=== PATIENT | male | born 1990 | race Caucasian/White ===

== ENCOUNTER 2018-01-02 20:23 | Emergency (ER) | payer SELFPAY ==
[~2018-01-02 20:23] MED LIST: NAPROSYN500 M1 PO
--- NOTE | 2018-01-02 21:21 | ED PSYCHIATRIC COMPLAINT ---
History of Present Illness General Chief Complaint: Psychiatric Related Complaint Stated Complaint: BIBA FOR DEPRESSION, +SI Source: patient, old records, EMS Exam Limitations: no limitations Vital Signs & Intake/Output Vital Signs & Intake/Output Vital Signs Date Time Temp Pulse Resp B/P B/P Pulse O2 O2 Flow FiO2 Mean Ox Delivery Rate 01/03 0659 96.3 55 16 125/72 100 Room Air 01/03 0245 97.8 74 16 116/70 99 Room Air 01/02 2306 98.5 70 20 122/64 99 Room Air 01/02 2038 97.8 85 16 140/76 100 Room Air Allergies Coded Allergies: NO KNOWN ALLERGIES (07/06/12) Triage Note: PT BIBA ON A PEER FOR SI. PER POLICE PT SEND GRANDMOTHER 25 TEXT MESSAGES SAYING HE WANTS TO COMMIT SUICIDE, NO PLAN. PT ARRIVES CALM AND COOPERATIVE Triage Nurses Notes Reviewed? yes HPI: Patient presents for evaluation of suicidal ideation. Patient states that he has been under a lot of stress recently. He has lost his job and feels the need to speak to somebody. He attempted to text his grandmother and his biological father. Apparently expressed some suicidal ideation prompting them to contact the police. (Ashley JACOBS,Julián Castaneda) Reconcile Medications [MEDICAL MARIJUANA] (Reported) (Jeffery JACOBS,Yayo) Past History Travel History Traveled to [place] past 21 day No Medical History Any Pertinent Medical History? see below for history Neurological: NONE EENT: NONE Cardiovascular: NONE Respiratory: NONE Gastrointestinal: NONE Hepatic: NONE Renal: NONE Musculoskeletal: NONE Psychiatric: NONE Endocrine: NONE Blood Disorders: NONE Cancer(s): NONE INSOLE PRESSER/Reproductive: NONE Surgical History Surgical History: non-contributory Psychosocial History What is your primary language Marshallese Family History Hx Contributory? No (Ashley JACOBS,Julián Castaneda) Review of Systems Review of Systems Constitutional: Reports: no symptoms. EENTM: Reports: no symptoms. Respiratory: Reports: no symptoms. Cardiovascular: Reports: no symptoms. GI: Reports: no symptoms. Genitourinary: Reports: no symptoms. Musculoskeletal: Reports: no symptoms. Skin: Reports: no symptoms. Neurological/Psychological: Reports: see HPI. Hematologic/Endocrine: Reports: no symptoms. Immunologic/Allergic: Reports: no symptoms. All Other Systems: Reviewed and Negative (Ashley JACOBS,Julián Castaneda) Physical Exam Physical Exam General Appearance: SEE BELOW Neurological/Psychiatric: SEE BELOW Comments: General: Alert, calm, cooperative Head: Normocephalic, atraumatic Eyes: Normal inspection, no nystagmus, EOMI Ears: Normal inspection Nose: Normal inspection Throat: Moist mucosa Neck: Supple, no goiter Heart: Regular rate and rhythm, no murmurs rubs or gallops Lungs: Clear to auscultation bilaterally with good air entry Abdomen: Soft nontender nondistended, normal bowel sounds Chest: Nontender Extremities: Normal range of motion grossly, mild tremors present, no cyanosis clubbing or edema of the upper extremities Neurologic: cranial nerves II through XII grossly intact, speech clear, gait normal Psychiatric: No apparent delusions or hallucinations, no pressured speech or thought blocking SAD PERSONS Done? DEFERRED TO CRISIS (Ashley JACOBS,Julián Castaneda) Progress Differential Diagnosis: DEPRESSION, ANXIETY, BIPOLAR DISORDER, PERSONALITY DISORDER Plan of Care: Orders Procedure Date/time Status Regular Diet 01/03 L Active Regular Diet 01/03 B Complete CIWA 01/03 915 Active Continuous Observation Monitor 01/02 2121 Active URINE DRUG SCREEN FOR ER ONLY 01/02 2121 Complete ETHANOL 01/02 2121 Complete CBC WITHOUT DIFFERENTIAL 01/02 2121 Complete BASIC METABOLIC PANEL 01/02 2121 Complete ED CRISIS PSYCH CONSULT 01/02 2121 Active Laboratory Tests 01/02/182147: Urine Opiates Screen < 100, Methadone Screen < 40, Barbiturate Screen < 60, Ur Phencyclidine Scrn < 6.00, Amphetamines Screen < 100, U Benzodiazepines Scrn 263 H, Urine Cocaine Screen 506 H, Urine Cannabis Screen > 80.00 H 01/02/180: Anion Gap 9, Estimated GFR > 60, BUN/Creatinine Ratio 12.5, Glucose 96, Calcium 9.4, CBC w Diff NO MAN DIFF REQ, RBC 4.92, MCV 92.1, MCH 31.1 H, MCHC 33.8, RDW 13.1, MPV 8.1, Gran % 57.7, Lymphocytes % 29.5, Monocytes % 5.9, Eosinophils % 6.2 H, Basophils % 0.7, Absolute Granulocytes 3.6, Absolute Lymphocytes 1.8, Absolute Monocytes 0.4, Absolute Eosinophils 0.4, Absolute Basophils 0, Serum Alcohol 89.0 Comments: 01/03/2018 11:40 AM patient signed out to Dr. Montgomery at shift change management facilitator. (Ashley JACOBS,Julián Castaneda) Departure Departure Condition: Stable Referrals: Patient Has No Primary Care Dr (PCP/Family) Departure Forms: Customer Survey General Discharge Information (Ashley JACOBS,Julián Castaneda) Departure Comments pt to be signed out to dr. tavares 01/03/18, 7am. (Valentina JACOBS,Chepe Roque) Departure Disposition: HOME OR SELF CARE Clinical Impression Primary Impression: Suicide ideation Secondary Impressions: Depression Qualifiers: Depression Type: unspecified Qualified Code: F32.9 - Major depressive disorder, single episode, unspecified Comments Patient seen and evaluated by crisis. Please see consult note. Please note that there might be incidental findings in your evaluation that are unrelated to the current emergency department visit. Please notify your primary care doctor about this emergency department visit in order to obtain and review all of the testing performed so that these incidental findings can be monitored as needed. If you had an x-ray performed, please understand that some fractures may not be seen on the initial set of x-rays. If your symptoms persist you might need a repeat set of x-rays to check for such a fracture. If you had a laceration evaluated, please understand that foreign bodies such as glass or wood may not be visible to the naked eye or on plain x-rays. If the wound becomes red, swollen, increasingly more painful or if there is any drainage from the wound, please have it reevaluated by a physician for the possibility of a retained foreign body. If you're unable to follow up as outlined in the discharge instructions please return to the emergency department. (Yayo Tavares MD)
[2018-01-02 21:48] LABS: ABSOLUTE BASOPHIL COUNT 0 /CUMM (0.0-0.2); ABSOLUTE EOSINOPHIL COUNT 0.4 /CUMM (0.0-0.7); ABSOLUTE GRANULOCYTE CT 3.6 /CUMM (1.4-6.5); ABSOLUTE LYMPH COUNT 1.8 /CUMM (1.2-3.4); ABSOLUTE MONOCYTE COUNT 0.4 /CUMM (0.10-0.60); BASOPHIL % 0.7 % (0.0-2.0); EOSINOPHIL % 6.2 % (0-5); GRANULOCYTE % 57.7 % (42.2-75.2); HEMATOCRIT 45.3 % (42-52); MEAN CORPUSCULAR HGB 31.1 PG (27.0-31.0); MEAN CORPUSCULAR HGB CONC 33.8 G/DL (33.0-37.0); MEAN CORPUSCULAR VOLUME 92.1 FL (80.0-94.0); MEAN PLATELET VOLUME 8.1 FL (7.4-10.4); PLATELET COUNT 232 /CUMM (130-400); RBC DISTRIBUTION WIDTH 13.1 % (11.5-14.5); RED BLOOD CELL CT 4.92 /CUMM (4.70-6.10); WHITE BLOOD CELL COUNT 6.3 /CUMM (4.8-10.8)
[2018-01-03] MEDS ORDERED: MEDICAL MARIJUANA (08:53)
[2018-01-03 11:20] VITALS: BP 124/88
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
== END 2018-01-03 11:20 ==
LOC: ERH 20:23
PROVIDERS: Emergency Medicine
DX: R45.851 Suicidal ideations (principal); F32.9 Major depressive disorder, single episode, unspecified
CPT/HCPCS: 80307; G0480